=== PATIENT | female | born 1970 | race Caucasian/White ===

== ENCOUNTER 2025-05-30 09:39 | Emergency (ER) | payer OTHER, SELFPAY ==
[2025-05-30 09:50] VITALS: BMI 41.9
[2025-05-30 09:55] VITALS: BP 170/93
--- NOTE | 2025-05-30 10:01 | ED.MUSCINJ ---
HPI-Injury
General
Chief Complaint: Fall
Source: patient
Exam Limitations: none
Time Seen by Provider: 05/30/25 09:46
History of Present Illness-Injury
Initial Injury comments:
54-year-old [id number] female presents complaining of left hand pain starting yesterday. She tripped at home and a ride and landed on her left hand. She notes bruising and swelling to the left palm. No other significant injury.
Past History
Past History
ED Past Medical History: None
ED Past Surgical History: Orthopedic (ankle ORIF)
Social History
Tobacco: Non-smoker
Personal:
Living: with family
Employment: Employed
Phy Exam
Physical Exam
Physical Exam:
General: Well-appearing female no acute respiratory distress
HEENT normal cephalic atraumatic
Musculoskeletal exam: Left hand swollen ecchymotic and tender over the thenar eminence and base of the thumb as well as the radial aspect of the wrist in the area of the scaphoid. Distal radius and ulna are nontender. The elbow is nontender
Injury Course
Orders/Labs/Results
Orders:
Orders
05/30/25 09:44
Hand, Left 3 View [CR Hand - Left Min 3 Views] Urgent
Comment:
Reason For Exam: bruising, pain
MDM/Problems Addressed
Differential Diagnosis Includes:
Left hand pain after trip and fall. Consider contusion versus fracture versus dislocation x-rays show no obvious fracture however patient is tender over the scaphoid. Concern for possible occult injury. Will place in a Velcro thumb spica splint
and will advise follow-up with orthopedics for recheck. Stable for discharge
*Pulse Oximetry
SaO2: 97
Oxygen Mode of Delivery: Room air
Patient hypoxic: no
*Critical Care Note
Total Time (30-74mins, 75-104mins- exclusive of procedures): Not Applicable
ED Attending Note
-
Portions of this chart may have been created with voice recognition software.� Occasional wrong word or��sound alike� substitutions may have occurred due to the inherent limitations of voice recognition software.
Discharge Plan
Departure
Patient Disposition: Home (Routine Discharge)
Date of Disposition: 05/30/25
Time of Disposition: 10:02
Patient with high blood pressure during this ER visit?: No
Discharge Problem:
Left wrist sprain
Referrals:
Fercho Martinez MD [Active, Orthopedics]
Activity Restrictions/Additional Instructions:
As discussed, there may be a sprain to your wrist however given your exam there is some concern for an occult fracture. The x-rays today do not suggest a fracture however we would like you to follow-up with orthopedics for recheck. Use the splint
for support
Interventions
Interventions:
*Risk Screen - Suicide Last Done: 05/30/25 09:40
*General Assessment Last Done: 05/30/25 09:50
*Neglect/Abuse Screening Last Done: 05/30/25 09:50
*ED- Fall Risk Assessment Last Done: 05/30/25 09:50
ED-Musculoskeletal Assessment Last Done: 05/30/25 09:56
ED- Neurological Assessment Last Done: 05/30/25 09:50
ED-Skin Assessment Last Done: 05/30/25 09:56
Discharge Date and Time
Print Language: TRISTANIAN
== END 2025-05-30 10:15 | disposition home or self-care (01) ==
LOC: EMR 09:39
PROVIDERS: EMERGENCY PHYSICIAN Student in an Organized Health Care Education/Training Program; FAMILY PHYSICIAN Family Medicine
DX: S63.502A Unspecified sprain of left wrist, initial encounter (principal); S60.222A Contusion of left hand, initial encounter; W01.0XXA Fall on same level from slipping, tripping and stumbling without subsequent striking against object, initial encounter
CPT/HCPCS: 29125; 99283; 73130